=== PATIENT | female | born 1955 | race Caucasian/White ===

== ENCOUNTER 2023-12-09 12:31 | Emergency (ER) | payer MEDICARE, OTHER ==
[~2023-12-09] VITALS: Ht 170.2 cm; Wt 84.8 kg
[2023-12-09 13:10] VITALS: BP 124/74; PULSE 98; RESP 16; O2SAT 95
== END 2023-12-09 14:19 | disposition home or self-care (01) ==
LOC: ER 12:31
DX: R51.9 Headache, unspecified (principal); R42 Dizziness and giddiness; W18.09XA Striking against other object with subsequent fall, initial encounter; Y93.89 Activity, other specified; Y92.89 Other specified places as the place of occurrence of the external cause; Y99.8 Other external cause status
CPT/HCPCS: 70450

== ENCOUNTER 2024-08-23 14:20 | Inpatient (IN) | payer MEDICARE, OTHER ==
[~2024-08-23] VITALS: Ht 170.2 cm; Wt 82.9 kg
--- NOTE | 2024-08-23 15:41 | ED.PDOC ---
History of Present Illness HPI Comments 68F BIBA w/ no prior MHX associated to the c/c of a syncope. Pt reports that [place] when she went to the bathroom and had an episode of /D for which she felt dizzy, from there the pt was walking in the aisles when she lost her balance and fell. Pt notes on only having oatmeal today. Denies chills, LOC, Hit Head, fever, N/V/D, SOB, CP. Denies any other associated symptom's, modifiers, or recent injuries or sick contact at this time. 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 History Family History Family History: Reviewed,noncontributory to illness, Unknown Social History Smoker: Non-Smoker Alcohol: Denies ETOH Use Drugs: Denies Drug Use Lives In: Home Constitutional: denies: chills, diaphoresis, fatigue, fever, malaise, sweats, weakness, others EENTM: denies: blurred vision, double vision, ear bleeding, ear discharge, ear drainage, ear pain, ear ringing, eye pain, eye redness, hearing loss, mouth pain, mouth swelling, nasal discharge, nose bleeding, nose congestion, nose pain, photophobia, tearing, throat pain, throat swelling, voice changes, others Respiratory: denies: cough, hemoptysis, orthopnea, SOB at rest, shortness of breath, SOB with excertion, stridor, wheezing, others Cardiovascular: denies: chest pain, dizzy spells, diaphoresis, Dyspnea on exertion, edema, irregular heart beat, left arm pain, lightheadedness, palpitations, PND, syncope, others Gastrointestinal: reports: diarrhea; denies: abdomen distended, abdominal pain, blood streaked bowels, constipated, dysphagia, difficulty swallowing, hematemesis, melena, nausea, poor appetite, poor fluid intake, rectal bleeding, rectal pain, vomiting, others Genitourinary: denies: abnormal vagina bleeding, burning, dyspareunia, dysuria, flank pain, frequency, hematuria, incontinence, pain, , vagina discharge, urgency, others Neurological: denies: dizziness, fainting, headache, left sided numbness, left sided weakness, numbness, paresthesia, pre-existing deficit, right sided numbness, right sided weakness, seizure, speech problems, tingling, tremors, weakness, others Musculoskeletal: denies: back pain, gout, joint pain, joint swelling, muscle pain, muscle stiffness, neck pain, others Integumetry: denies: bruises, change in color, change in hair/nails, dryness, laceration, lesions, lumps, rash, wounds, others Allergic/Immunocompromised: denies: Difficulty Healing, Frequent Infections, Hives, Itching, others Hematologic/Lymphatic: denies: anemia, blood clots, easy bleeding, easy bruising, swollen glands, others Endocrine: denies: excessive hunger, excessive sweating, excessive thirst, excessive urination, flushing, intolerance to cold, intolerance to heat, unexplained weight gain, unexplained weight loss, others Psychiatric: denies: anxiety, bipolar disorder, depression, hopeless, panic disorder, schizophrenia, sleepless, suicidal, others All Other Systems: Reviewed and Negative Physical Exam General Appearance: Moderate Distress HEENT: Pale Conjuntivae (L), Pale Conjuntivae (R), Pharynx Normal, TMs Normal Neck: Full Range of Motion, Non-Tender, Normal, Normal Inspection Respiratory: Chest Non-Tender, Lungs Clear, No Accessory Muscle Use, No Respiratory Distress, Normal Breath Sounds Cardiovascular: No Edema, No JVD, No Murmur, No Gallop, Tachycardia Breast Exam: Deferred Gastrointestinal: No Organomegaly, Non Tender, No Pulsatile Mass, Normal Bowel Sounds, Soft Genitalia: Deferred Pelvic: Deferred Rectal: Deferred Extremities: No calf tenderness, Normal capillary refill, No pedal edema Musculoskeletal : Apperance: Normal Neurologic: Alert, shade cloth finisher II-XII nml as Tested, Motor Weakness, Normal Affect, Normal Mood, No Sensory Deficits Cerebellar Function: Normal Reflexes: Normal Skin: Dry, Pallor, Warm Lymphatic: No Adenopathy Was a procedure done? Was a procedure done?: No EKG EKG : Pulse Rate (adult): 81 [place]: Normal Cardiac Rhythm: NSR Block: None Hypertrophy: None ST: Normal Differential Dx Considerations may include: Tachyarrhythmia, SVT, sepsis, atrial fibrillation with rapid response, dehydration, electrolyte imbalance X-Ray, Labs, Meds, VS Vital Signs Date Time Temp Pulse Resp B/P (MAP) Pulse Ox O2 Delivery O2 Flow Rate FiO2 08/23/24 20:04 94 15 95 Room Air* 0 21 08/23/24 20:03 97.5 94 15 125/75 (92) 95 97.5 08/23/24 18:30 128 17 105/66 (79) 95 08/23/24 18:10 105 13 116/68 (84) 94 08/23/24 17:25 97.8 142 28 101/69 (80) 97 97.8 08/23/24 17:25 142 28 97 Room Air* 0 21 08/23/24 16:44 148 08/23/24 16:41 98.1 155 20 141/73 (95) 99 98.1 08/23/24 15:41 81 08/23/24 14:20 97.6 97 18 122/78 (93) 98 97.6 Lab Test 08/23/24 19:55 08/23/24 16:31 Range/Units Urine Color Colorless Yellow Urine Clarity Clear Clear Urine pH 6.5 5.0-9.0 Urine Specific [place] 1.005 1.001-1.035 Urine Protein Negative Negative Urine Ketones 1+ H Negative Urine Blood Negative Negative /uL Urine Nitrite Negative Negative Urine Bilirubin Negative Negative Urine Urobilinogen Normal Negative mg/dL Urine Leukocyte Esterase Negative Negative /uL Urine RBC <1 0 - 4 /hpf Urine Microscopic WBC 2 0-5 /HPF Urine Squamous Epithelial Cells None seen <5 /hpf Urine Bacteria Few H None Seen /hpf Urine Glucose Normal Normal mg/dL White Blood Count 13.9 H 4.4-10.8 10^3/uL Red Blood Count 5.40 H 4.0-5.20 10^6/uL Hemoglobin 15.6 12.2-16.2 g/dL Hematocrit 46.6 H 36.0-46.0 % Mean Corpuscular Volume 86.3 80.0-100.0 fL Mean Corpuscular Hemoglobin 28.8 28.0-32.0 pg Mean Corpuscular Hemoglobin Concent 33.4 32.0-36.0 g/dL Red Cell Distribution Width 14.2 11.8-14.3 % Platelet Count 241 140-450 10^3/uL Mean Platelet Volume 8.1 6.9-10.8 fL Neutrophils (%) (Auto) 86.2 H 37.0-80.0 % Lymphocytes (%) (Auto) 8.4 L 10.0-50.0 % Monocytes (%) (Auto) 5.2 0.0-12.0 % Eosinophils (%) (Auto) 0.1 0.0-7.0 % Basophils (%) (Auto) 0.1 0.0-2.0 % Neutrophils # (Auto) 12.0 H 1.6-8.6 10 ^3/uL Lymphocytes # (Auto) 1.2 0.4-5.4 10 ^3/uL Monocytes # (Auto) 0.7 0-1.3 10 ^3/uL Eosinophils # (Auto) 0 0-0.8 10 ^3/uL Basophils # (Auto) 0 0-0.2 10 ^3/uL Nucleated Red Blood Cells 0.1 % Sodium Level 142 136-145 mmol/L Potassium Level 3.9 3.5-5.1 mmol/L Chloride Level 109 H 98-107 mmol/L Carbon Dioxide Level 24 20-31 mmol/L Anion Gap 9 5-15 Blood Urea Nitrogen 19 9-23 mg/dL Creatinine 1.04 H 0.550-1.02 mg/dL Glomerular Filtration Rate Calc 58 >90 mL/min BUN/Creatinine Ratio 18.3 10.0-20.0 Serum Glucose 116 H 74-106 mg/dL Calcium Level 11.4 H 8.7-10.4 mg/dL Troponin I High Sensitivity 3 L </=34 ng/L Current Medications Medications (Trade) Dose Ordered Sig/Edis Route Start Time Stop Time Status Last Admin Sodium Chloride 500 ml @ 500 mls/hr Q1H ONCE IV 08/23/24 17:00 08/23/24 17:59 DC 08/23/24 17:30 Amiodarone HCl 100 ml @ 600 mls/hr ONCE ONCE IV 08/23/24 17:45 08/23/24 17:54 DC 08/23/24 17:56 IMPRESSION: 1. No acute intracranial abnormality. 2. Moderately severe right maxillary sinusitis. Radiation optimization: All CT scans at this facility use at least one of these dose optimization techniques: automated exposure control mA and/or kV adjustment per patient size (includes targeted exams where dose is matched to clinical indication) or iterative reconstruction. The patient was given normal saline as a 500 cc bolus. The patient was heart rate has been increasing and decreasing so we did start the patient had an amiodarone drip. The patient's troponin level came back as negative The CBC shows an elevated white blood cell count of 13.9 The urine test is negative for any UTI Blood cultures x2 were being drawn The lactic acid level is being done The patient was being started on some IV antibiotics as well. The patient was being admitted at this time. Images Reviewed?: Images reviewed and evaluated by me Time of 1ST Reevaluation: 15:30 Reevaluation 1ST: Unchanged Patient Education/Counseling: Diagnosis, Treatment, Prognosis Family Education/Counseling: No Family Present Departure 1 Departure Time of Disposition: 20:43 Impression: Primary Impression: Autonomic dysfunction Additional Impressions: Generalized weakness Dehydration Tachycardia Hypotension Qualified Codes: I95.9 - Hypotension, unspecified Disposition: ADMITTED INPATIENT Admit to: MARK Condition: Fair Critical Care Note Critical Care Time?: Yes (45 min-critical care time only) Stability Stability form required: Yes Unstable for transfer: ICU, CCU, PCU, MARK (Intensive VS monitoring), Low BP (low high or fluctuating BP), ED Physician Assesment (Clinical assesment) I personally scribed for KAVITA KOCH MD ([email or web address]) on 08/23/24 at 15:41. Electronically submitted by Monster Valencia ([email or web address]). I personally scribed for KAVITA KOCH MD ([email or web address]) on 08/23/24 at 18:47. Electronically submitted by Monster Valencia ([email or web address]). KAVITA KOCH MD August 23, 2024 15:41
--- NOTE | 2024-08-23 16:35 | DVH ---
EXAM: CT HEAD WITHOUT CONTRAST INDICATION: syncope TECHNIQUE: CT of the head without intravenous contrast. Radiation Dose : 1. Head: CT Dose: CTDI volume is 53.75 mGy. Dose-length product is 861.71 mGy*cm The dose indicators for CT are the volume Computed Tomography (CT) Dose Index (CTDIvol) and the Dose Length Product (DLP), and are measured in units of mGy and mGy-cm, respectively. These indicators are not patient dose, but values generated from the CT scanner acquisition factors. The report includes radiation exposure data for exposures received during this examination. COMPARISON: CT HEAD WITHOUT CONTRAST on DOS: 12/09/23 FINDINGS: There is no evidence of acute intracranial hemorrhage, extra-axial collection, mass effect, midline s hift, herniation or hydrocephalus. The ventricles, sulci and cisterns are age appropriate. The barajas-white differentiation is intact. Patchy periventricular and subcortical white matter hypoattenuation is nonspecific but may be related to small vessel ischemic disease. Moderately severe right maxillary sinusitis. The surrounding soft tissues and osseous structures are unremarkable. IMPRESSION: 1. No acute intracranial abnormality. 2. Moderately severe right maxillary sinusitis. Radiation optimization: All CT scans at this facility use at least one of these dose optimization luis hniques: automated exposure control mA and/or kV adjustment per patient size (includes targeted exam s where dose is matched to clinical indication) or iterative reconstruction.
[2024-08-23 16:55] LABS: Basophils # (auto) 0 10 ^3/uL (0-0.2); Basophils % (auto) 0.1 % (0.0-2.0); Eosinophils # (auto) 0 10 ^3/uL (0-0.8); Eosinophils % (auto) 0.1 % (0.0-7.0); Hematocrit 46.6 % (36.0-46.0); Hemoglobin 15.6 g/dL (12.2-16.2); Lymphocytes # (auto) 1.2 10 ^3/uL (0.4-5.4); Lymphocytes % (auto) 8.4 % (10.0-50.0); Mean Corpuscular Hemoglobin 28.8 pg (28.0-32.0); Mean Corpuscular Hgb Conc. 33.4 g/dL (32.0-36.0); Mean Corpuscular Volume 86.3 fL (80.0-100.0); Monocytes # (auto) 0.7 10 ^3/uL (0-1.3); Monocytes % (auto) 5.2 % (0.0-12.0); Neutrophils % (auto) 86.2 % (37.0-80.0); Nucleated Red Blood Cells % 0.1 %; Platelet Count (auto) 241 10^3/uL (140-450); Red Cell Distribution Width 14.2 % (11.8-14.3); White Blood Cell 13.9 10^3/uL (4.4-10.8)
[2024-08-23] MEDS ORDERED: LABETALOL HCL 20 MG/4 ML VL IV PRN (17:00)
[2024-08-23 17:02] LABS: Potassium 3.9 mmol/L (3.5-5.1); Sodium 142 mmol/L (136-145)
[2024-08-23 17:03] LABS: Anion Gap 9 (5-15); Carbon Dioxide 24 mmol/L (20-31)
[2024-08-23 17:08] LABS: BUN/Creatinine Ratio 18.3 (10.0-20.0); Blood Urea Nitrogen 19 mg/dL (9-23); Calcium 11.4 mg/dL (8.7-10.4); Chloride 109 mmol/L (98-107); Glucose 116 mg/dL (74-106)
[2024-08-23 17:25] VITALS: PULSE 142; RESP 28; O2SAT 97
[2024-08-23] MEDS: SODIUM CHLORIDE 0.9% 500 ML IV ONE (17:30)
[2024-08-23] MEDS ORDERED: ADENOSINE 6 MG/2 ML INJ IV ONE (17:30)
[2024-08-23] MEDS: AMIODARONE BOLUS KIT 100 ML IV ONE (17:56)
[2024-08-23] MEDS: AMIODARONE 360mg/200mL PREMIX 200 ML IV ONE (18:14)
[2024-08-23] MEDS ORDERED: ACETAMINOPHEN 325 MG TAB PO PRN (19:30)
[2024-08-23] MEDS ORDERED: DOCUSATE SOD 100 MG CAP PO PRN (19:30)
[2024-08-23] MEDS ORDERED: ONDANSETRON HCL 4 MG/2 ML VIAL IV PRN (19:30)
[2024-08-23] MEDS ORDERED: HYDROcodone-ACET 5/325MG TAB PO PRN (19:30)
[2024-08-23 20:04] VITALS: PULSE 94; RESP 15; O2SAT 95
[2024-08-23 20:12] LABS: Urine Bacteria FEW /hpf (None Seen); Urine Blood Negative /uL (Negative); Urine Clarity Clear (Clear); Urine Color Colorless (Yellow); Urine Protein, UAD Negative (Negative); Urine Specific Gravity 1.005 (1.001-1.035); Urine Squamous Epithelial Cell None Seen /hpf (<5); Urine Urobilinogen Normal (Negative); Urine WBC 2 /HPF (0-5); Urine pH 6.5 (5.0-9.0)
--- NOTE | 2024-08-23 20:33 | ECG ---
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
[2024-08-23] MEDS: SODIUM CHLORIDE 0.9% 1,000 ML IV ONE (20:45)
[2024-08-23] MEDS: cefTRIAXone 1GM/50ML D5W 50 ML IV ONE (20:47)
[2024-08-23] MEDS: ASPirin 81 mg TAB PO ONE (20:47)
[2024-08-23] MEDS: SODIUM CHLOR 0.9% PF (SALINE LOCK) 10ML VIAL/SYR IV SCH (21:58)
[2024-08-23] MEDS: METOPROLOL TARTRATE 25 MG TAB PO SCH (22:00)
[2024-08-23] MEDS: AMIODARONE HCL 200 MG TAB PO SCH (22:06)
--- NOTE | 2024-08-23 22:13 | DVHHP2 ---
History of Present Illness Reason for Visit: Syncope and collapse History of Present Illness The patient is a 68-year-old female who denies past medical history presented to [facility] ED with complaint of syncopal episode. Patient reports she was [place] when she went to the bathroom and felt dizzy with spinning sensation, loss of balance, and had syncopal episode. Patient unable to recall event as she reports she suddenly found herself in the hospital. Patient was seen and evaluated in the ED, laboratory data shows elevated WBC 13.9, platelets 241, sodium 142, potassium 3.9, BUN 19, creatinine 1.04, glucose 116, GFR 58, calcium 11.4, troponin 3, blood pressure 141/73, heart rate 155 trending down to 82, temperature 98.1 F, O2 saturation 99% on room air. Patient was given IV amiodarone 150 mg x1, please see medication orders section in the computer. On my assessment, patient denies chest pain, no headache, no dizziness, no diaphoresis, no shortness of breath, no nausea, no vomiting, no fever, no chills. Patient was admitted for further evaluation and medical management. Past Medical History Denies past medical history Past Surgical History Denies all surgeries Family History Reviewed, noncontributory to the management of this case. Past Social History The patient lives at home, denies smoking, alcohol or illicit drugs abuse. Review of Systems Constitutional: Yes: Weakness; No: Fever, Chills, Sweats, Malaise, Other Eyes: No: Pain, Vision change, Conjunctivae inflammation, Eyelid inflammation, Other, Redness ENT: No: Ear pain, Ear discharge, Nose pain, Nose discharge, Nose congestion, Mouth pain, Mouth swelling, Throat pain, Throat swelling, Other Respiratory: No: Cough, Dry, Shortness of breath, SOB with excertion, Wheezing, Hemoptysis, Pleuritic Pain, Sputum, Wheezing, Other Cardiovascular: Other (Syncope); No: Chest Pain, Palpitations, Orthopnea, Paroxysmal Noc. Dyspnea, Edema, Lt Headedness Gastrointestinal: No: Nausea, Vomiting, Abdominal Pain, Diarrhea, Constipation, Melena, Hematochezia, Other Genitourinary: No Dysuria, No Frequency, No Incontinence, No Hematuria, No Retention, No Other Musculoskeletal: No: other, neck pain, shoulder pain, arm pain, back pain, hand pain, leg pain, foot pain Skin: No: Rash, Lesions, Jaundice, Bruising, Other Neurological: No: Weakness, Numbness, Incoordination, Change in speech, Confusion, Seizures, Other Allergies: Coded Allergies: NO KNOWN ALLERGIES (Unverified , 08/23/24) Medications Current Medications Medications Dose Ordered Sig/Edis Route Start Time Stop Time Status Last Admin Dose Admin Labetalol HCl 10 mg Q2HPRN PRN IV 08/23/24 17:00 Amiodarone HCl 200 mg Q12HR PO 08/23/24 22:00 08/23/24 22:06 200 MG Ceftriaxone Sodium 50 ml @ 100 mls/hr DAILY@09 IV 08/24/24 09:00 Metoprolol Tartrate 25 mg BID PO 08/23/24 22:00 Aspirin 81 mg DAILY PO 08/24/24 10:00 Sodium Chloride 10 ml Q8HR IV 08/23/24 22:00 08/23/24 21:58 10 ML Acetaminophen/ Hydrocodone Bitart 1 tab Q4HP PRN PO 08/23/24 19:30 Ondansetron HCl 4 mg Q4HP PRN IV 08/23/24 19:30 Docusate Sodium 100 mg BIDPRN PRN PO 08/23/24 19:30 Acetaminophen 650 mg Q6HP PRN PO 08/23/24 19:30 Exam Vital Signs Vital Signs Date Time Temp Pulse Resp B/P (MAP) Pulse Ox O2 Delivery O2 Flow Rate FiO2 08/23/24 22:00 79 107/55 08/23/24 20:04 15 95 Room Air* 0 21 08/23/24 20:03 97.5 97.5 General Appearance: Alert, Oriented X3, Cooperative, No acute distress HEENT: Atraumatic, PERRLA, EOMI, Mucous membr. moist/pink Respiratory: Clear to auscultation, Normal air movement Cardiovascular: Regular rate, Normal S1, Normal S2, No murmurs Abdominal: Normal bowel sounds, Soft, No tenderness, No hepatospenomegaly, No masses Extremities: No clubbing, No cyanosis, No edema, Normal pulses, No tenderness/swelling Skin: No rashes, No breakdown, No significant lesion Neuro: Normal speech, Normal tone, Sensation intact, Cranial nerves 3-12 NL, Reflexes 2+, Other (Generalized weakness) Psych/Mental Status: Mental status NL, Mood NL Labs/Xrays Labs Test 08/23/24 20:52 08/23/24 19:55 08/23/24 16:31 Range/Units Lactic Acid Level 1.5 0.4-2.0 mmol/L Urine Color Colorless Yellow Urine Clarity Clear Clear Urine pH 6.5 5.0-9.0 Urine Specific [place] 1.005 1.001-1.035 Urine Protein Negative Negative Urine Ketones 1+ H Negative Urine Blood Negative Negative /uL Urine Nitrite Negative Negative Urine Bilirubin Negative Negative Urine Urobilinogen Normal Negative mg/dL Urine Leukocyte Esterase Negative Negative /uL Urine RBC <1 0 - 4 /hpf Urine Microscopic WBC 2 0-5 /HPF Urine Squamous Epithelial Cells None seen <5 /hpf Urine Bacteria Few H None Seen /hpf Urine Glucose Normal Normal mg/dL White Blood Count 13.9 H 4.4-10.8 10^3/uL Red Blood Count 5.40 H 4.0-5.20 10^6/uL Hemoglobin 15.6 12.2-16.2 g/dL Hematocrit 46.6 H 36.0-46.0 % Mean Corpuscular Volume 86.3 80.0-100.0 fL Mean Corpuscular Hemoglobin 28.8 28.0-32.0 pg Mean Corpuscular Hemoglobin Concent 33.4 32.0-36.0 g/dL Red Cell Distribution Width 14.2 11.8-14.3 % Platelet Count 241 140-450 10^3/uL Mean Platelet Volume 8.1 6.9-10.8 fL Neutrophils (%) (Auto) 86.2 H 37.0-80.0 % Lymphocytes (%) (Auto) 8.4 L 10.0-50.0 % Monocytes (%) (Auto) 5.2 0.0-12.0 % Eosinophils (%) (Auto) 0.1 0.0-7.0 % Basophils (%) (Auto) 0.1 0.0-2.0 % Neutrophils # (Auto) 12.0 H 1.6-8.6 10 ^3/uL Lymphocytes # (Auto) 1.2 0.4-5.4 10 ^3/uL Monocytes # (Auto) 0.7 0-1.3 10 ^3/uL Eosinophils # (Auto) 0 0-0.8 10 ^3/uL Basophils # (Auto) 0 0-0.2 10 ^3/uL Nucleated Red Blood Cells 0.1 % Sodium Level 142 136-145 mmol/L Potassium Level 3.9 3.5-5.1 mmol/L Chloride Level 109 H 98-107 mmol/L Carbon Dioxide Level 24 20-31 mmol/L Anion Gap 9 5-15 Blood Urea Nitrogen 19 9-23 mg/dL Creatinine 1.04 H 0.550-1.02 mg/dL Glomerular Filtration Rate Calc 58 >90 mL/min BUN/Creatinine Ratio 18.3 10.0-20.0 Serum Glucose 116 H 74-106 mg/dL Calcium Level 11.4 H 8.7-10.4 mg/dL Troponin I High Sensitivity 3 L </=34 ng/L PATIENT: MATT OG ANNACCT: [id number] UNIT: [id number] : 1955 LOC: ER ROOM / BED: / AGE / SEX: 68 / F ADM STATUS: REG ER SERVICE [id number] ORDERING PHYSICIAN: KAVITA KOCH MD PROCEDURE(s): HWOCT - HEAD WITHOUT CONTRAST REASON: syncope ORDER NUMBER(s): [id number], ACCESSION NUMBER(s): [id number] EXAM: CT HEAD WITHOUT CONTRAST INDICATION: syncope TECHNIQUE: CT of the head without intravenous contrast. Radiation Dose: 1. Head: CT Dose: CTDI volume is 53.75 mGy. Dose-length product is 861.71 mGy*cm The dose indicators for CT are the volume Computed Tomography (CT) Dose Index (CTDIvol) and the Dose Length Product (DLP), and are measured in units of mGy and mGy-cm, respectively. These indicators are not patient dose, but values generated from the CT scanner acquisition factors. The report includes radiation exposure data for exposures received during this examination. COMPARISON: CT HEAD WITHOUT CONTRAST on DOS: 12/09/23 FINDINGS: There is no evidence of acute intracranial hemorrhage, extra-axial collection, mass effect, midline shift, herniation or hydrocephalus. The ventricles, sulci and cisterns are age appropriate. The barajas-white differentiation is intact. Patchy periventricular and subcortical white matter hypoattenuation is nonspec ific but may be related to small vessel ischemic disease. Moderately severe right maxillary sinusitis. The surrounding soft tissues and osseous structures are unremarkable. IMPRESSION: 1. No acute intracranial abnormality. 2. Moderately severe right maxillary sinusitis. Assessment/Plan Assessment/Plan Autonomic dysfunction Dehydration Tachycardia Generalized weakness Hypotension Hypotension, unspecified Plan 1. Admit to telemetry unit 2. Breathing treatment 3. Pain control management 4. Management of fluids and electrolytes 5. Consultation for Cardiology 6. Diagnostic tests chest x-ray 7. DVT prophylaxis-on aspirin 8. Repeat labs CBC, CMP in a.m. 9. Continue with current medical management 10. Treatment plan discussed with patient and RN. Patient verbalized understanding. Plan discussed with: Patient, Other (RN) My Orders Orders - MANSOOR CHAVEZ DNP Procedure Category Date Status Time * Cardiology Consult CONS 08/23/24 Transmitted 19:26 Amiodarone Tablet PHA 08/23/24 In Process (Cordarone Tablet) 22:00 Ceftriaxone 1gm/50ml PHA 08/24/24 In Process D5w (Rocephin) 09:00 Metoprolol Tartrate PHA 08/23/24 In Process Tablet (Lopressor Ta 22:00 Aspirin Tablet PHA 08/24/24 In Process 10:00 Allergies HAILE 08/23/24 In Process 19:26 Code Status CODE 08/23/24 Transmitted 19:26 Sodium Chloride Lock PHA 08/23/24 In Process (Saline Lock Ns) 22:00 Oxygen Per Hour RT 08/23/24 Transmitted 19:26 Hydrocodone-Acet PHA 08/23/24 In Process 5/325mg Tab (Moro 19:30 Ondansetron Hcl PHA 08/23/24 In Process (Zofran) 19:30 Docusate Sodium PHA 08/23/24 In Process Capsule (Colace 19:30 Fall Risk Precautions HAILE 08/23/[address] 19:26 Complete Blood Count LAB 08/24/24 Verified 04:00 Comprehensive LAB 08/24/24 Verified Metabolic Panel 04:00 Cardiac DIET 08/24/24 Transmitted Diet-2gna,Lofat,Lochol Breakfast Condition: Serious HAILE 08/23/24 In Process 19:26 Acetaminophen Tablet PHA 08/23/24 In Process (Tylenol Tablet) 19:30 Maintain Bed Rest HAILE 08/23/24 In Process 19:26 Sequential HAILE 08/23/24 In Process Compression Device Problem List: (1) Autonomic dysfunction (2) Hypotension (3) Tachycardia (4) Generalized weakness (5) Dehydration (6) Hypotension, unspecified Date of Service: August 23, 2024 Billing Provider: MANSOOR CHAVEZ DNP Common Visit Codes: [id number] INP/OBS CARE (HIGH) MANSOOR CHAVEZ DNP August 23, 2024 22:13
[2024-08-23] MEDS ORDERED: NITROGLYCERIN 0.4 MG SL TAB SL PRN (22:15)
[2024-08-23] MEDS ORDERED: MORPHINE SULFATE INJ 2 MG/ml SYRG IV PRN (22:15)
[2024-08-24] VITALS (10 sets, daily range): BP systolic 119–161; BP diastolic 70–112; PULSE 66–77; RESP 16–19; TEMP 97.3–98.9; O2SAT 96–98
[2024-08-24 08:12] LABS: Alanine Aminotransferase 13 U/L (7-40); Alkaline Phosphatase 78 U/L (46-116); Anion Gap 7 (5-15); BUN/Creatinine Ratio 13.4 (10.0-20.0); Blood Urea Nitrogen 11 mg/dL (9-23); Calcium 10.3 mg/dL (8.7-10.4); Carbon Dioxide 24 mmol/L (20-31); Glucose 93 mg/dL (74-106); Potassium 3.8 mmol/L (3.5-5.1); Total Protein 5.9 g/dL (5.7-8.2)
[2024-08-24 08:13] LABS: Albumin 3.6 g/dL (3.2-4.8); Bilirubin, Total 0.9 mg/dL (0.2-1.0)
[2024-08-24 08:16] LABS: Aspartate Aminotransferase 10 U/L (13-40); Chloride 114 mmol/L (98-107); Sodium 145 mmol/L (136-145)
[2024-08-24 08:18] LABS: Basophils # (auto) 0 10 ^3/uL (0-0.2); Basophils % (auto) 0.3 % (0.0-2.0); Eosinophils # (auto) 0 10 ^3/uL (0-0.8); Eosinophils % (auto) 0.6 % (0.0-7.0); Hematocrit 40.2 % (36.0-46.0); Hemoglobin 13.5 g/dL (12.2-16.2); Lymphocytes # (auto) 1.6 10 ^3/uL (0.4-5.4); Lymphocytes % (auto) 26.7 % (10.0-50.0); Mean Corpuscular Hemoglobin 28.9 pg (28.0-32.0); Mean Corpuscular Hgb Conc. 33.6 g/dL (32.0-36.0); Mean Corpuscular Volume 85.8 fL (80.0-100.0); Monocytes # (auto) 0.6 10 ^3/uL (0-1.3); Monocytes % (auto) 9.7 % (0.0-12.0); Neutrophils # (auto) 3.8 10 ^3/uL (1.6-8.6); Neutrophils % (auto) 62.7 % (37.0-80.0); Nucleated Red Blood Cells % 0.1 %; Platelet Count (auto) 181 10^3/uL (140-450); Red Blood Cells 4.68 10^6/uL (4.0-5.20); Red Cell Distribution Width 14.2 % (11.8-14.3); White Blood Cell 6.1 10^3/uL (4.4-10.8)
[2024-08-24] MEDS: ASPirin 81 mg TAB PO SCH (10:16)
[2024-08-24] MEDS: cefTRIAXone 1GM/50ML D5W 50 ML IV SCH (10:17)
--- NOTE | 2024-08-24 12:39 | DVHINCON2 ---
JU TINJAERO [facility] 08/24/24 1239: Date Seen: August 24, 2024 Referring Physician GISELLA Saenz Reason for Consultation Atrial fibrillation History of Present Illness This is a 68-year-old female patient who presents to the emergency room after sustaining a syncopal episode. The patient reports that she was running errands at [employer] yesterday when suddenly she began to feel hot, dizzy, and palpitations. She reports that the next thing she remembers is waking up on the ground with a bystander helping her. EMS was called and the patient was brought to the emergency room for further evaluation. Cardiology has been consulted at this time for "atrial fibrillation". Initial twelve lead electrocardiogram done in the emergency room shows patient in normal sinus rhythm with PAC. Approximately 2 hours later, a repeat twelve lead electrocardiogram was obtained in the emergency room and shows a narrow complex tachycardia, likely SVT. No evidence of atrial fibrillation found on twelve lead electrocardiograms or groundwater monitoring technician. For some reason, the patient was treated with an amiodarone bolus and protocol IV dose while in the emergency room. At the time of assessment, the patient is back in a normal sinus rhythm on groundwater monitoring technician. Initial troponin level was negative. The patient denies any cardiac symptoms at time of assessment. The patient denies any previous past medical history. Past Medical History Past medical history reviewed. No other significant than mentioned above. Past Surgical History Denies any previous surgeries Family History: Patient reports no known family medical history. Family History Family history reviewed. Social History Denies the use of tobacco, alcohol or illicit drugs. Allergies: Coded Allergies: NO KNOWN ALLERGIES (Unverified , 08/23/24) Home Meds Denies taking any prescribed medications Current Medications Current Medications Medications (Trade) Dose Ordered Sig/Edis Route PRN Reason Start Time Stop Time Status Last Admin Labetalol HCl (Labetalol HCl) 10 mg Q2HPRN PRN IV SBP>150 08/23/24 17:00 Amiodarone HCl (Cordarone Tablet) 200 mg Q12HR PO 08/23/24 22:00 08/24/24 11:46 DC 08/24/24 10:16 Ceftriaxone Sodium 50 ml @ 100 mls/hr DAILY@09 IV 08/24/24 09:00 08/24/24 10:17 Metoprolol Tartrate (Lopressor Tablet) 25 mg BID PO 08/23/24 22:00 08/24/24 10:16 Aspirin 81 mg DAILY PO 08/24/24 10:00 08/24/24 10:16 Sodium Chloride (Saline Lock Ns) 10 ml Q8HR IV 08/23/24 22:00 08/24/24 06:00 Acetaminophen/ Hydrocodone Bitart ([place] 5/325MG Tab) 1 tab Q4HP PRN PO MODERATE PAIN (4-6 PAIN SCALE) 08/23/24 19:30 Ondansetron HCl (Zofran) 4 mg Q4HP PRN IV NAUSEA / VOMITING 08/23/24 19:30 Docusate Sodium (Colace Capsule) 100 mg BIDPRN PRN PO FOR CONSTIPATION 08/23/24 19:30 Acetaminophen (Tylenol Tablet) 650 mg Q6HP PRN PO PAIN SCALE 1-3 OR TEMP>100.4 08/23/24 19:30 Nitroglycerin (Ntrostat Sublingual) 0.4 mg Q5MINP PRN SL FOR CHEST PAIN 08/23/24 22:15 Morphine Sulfate 2 mg Q30M PRN IV FOR CHEST PAIN 08/23/24 22:15 Review of Systems Constitutional: No symptom reported Ears, Nose, & Throat: No symptom reported Eyes: No symptom reported Neurological: Syncope Pulmonary/Respiratory: No symptoms reported Cardiovascular: Palpitations Gastrointestinal: No symptom reported Genitourinary: No symptom reported Musculoskeletal: No symptom reported Skin: No symptom reported Psychiatric: No symptom reported Endocrine: No symptom reported Hematologic/Lymphatic: No symptom reported Vital Signs Vital Signs Date Time Temp Pulse Resp B/P (MAP) Pulse Ox O2 Delivery O2 Flow Rate FiO2 08/24/24 10:16 68 132/70 08/24/24 08:47 98.0 16 98 98.0 08/24/24 08:00 Room Air* 0 21 Physical Exam General Appearance: Cooperative. Well-developed. Well-nourished. No acute distress. Pulmonary/Respiratory: Clear, bilateral breaths sounds. Cardiovascular/Chest: Regular rate and rhythm. Peripheral Pulses: 2+ Radial (R). 2+ Radial (L). 2+ Pedal (R). 2+ Pedal (L) Abdominal Exam: Normal bowel sounds. Ankle Exam: Negative ankle edema Lower extremities: Negative lower extremity edema Neuro/Mental Status: A/OX4, coherent. Thoughts/Psych: Normal thought pattern. Appropriate mood and affect. Good judgment and insight. Appearance: No acute distress. Skin Exam: Normal inspection. Normal color. Warm and dry. Labs/Diagnostic Data Labs Test 08/24/24 06:10 08/23/24 20:52 08/23/24 19:55 08/23/24 16:31 Range/Units White Blood Count 6.1 # 4.4-10.8 10^3/uL Red Blood Count 4.68 4.0-5.20 10^6/uL Hemoglobin 13.5 12.2-16.2 g/dL Hematocrit 40.2 # 36.0-46.0 % Mean Corpuscular Volume 85.8 80.0-100.0 fL Mean Corpuscular Hemoglobin 28.9 28.0-32.0 pg Mean Corpuscular Hemoglobin Concent 33.6 32.0-36.0 g/dL Red Cell Distribution Width 14.2 11.8-14.3 % Platelet Count 181 140-450 10^3/uL Mean Platelet Volume 8.3 6.9-10.8 fL Neutrophils (%) (Auto) 62.7 37.0-80.0 % Lymphocytes (%) (Auto) 26.7 10.0-50.0 % Monocytes (%) (Auto) 9.7 0.0-12.0 % Eosinophils (%) (Auto) 0.6 0.0-7.0 % Basophils (%) (Auto) 0.3 0.0-2.0 % Neutrophils # (Auto) 3.8 1.6-8.6 10 ^3/uL Lymphocytes # (Auto) 1.6 0.4-5.4 10 ^3/uL Monocytes # (Auto) 0.6 0-1.3 10 ^3/uL Eosinophils # (Auto) 0 0-0.8 10 ^3/uL Basophils # (Auto) 0 0-0.2 10 ^3/uL Nucleated Red Blood Cells 0.1 % Sodium Level 145 136-145 mmol/L Potassium Level 3.8 3.5-5.1 mmol/L Chloride Level 114 H 98-107 mmol/L Carbon Dioxide Level 24 20-31 mmol/L Anion Gap 7 5-15 Blood Urea Nitrogen 11 9-23 mg/dL Creatinine 0.82 0.550-1.02 mg/dL Glomerular Filtration Rate Calc 77 >90 mL/min BUN/Creatinine Ratio 13.4 10.0-20.0 Serum Glucose 93 74-106 mg/dL Calcium Level 10.3 8.7-10.4 mg/dL Total Bilirubin 0.9 0.2-1.0 mg/dL Aspartate Amino Transferase (AST) 10 L 13-40 U/L Alanine Aminotransferase (ALT) 13 7-40 U/L Alkaline Phosphatase 78 46-116 U/L Total Protein 5.9 5.7-8.2 g/dL Albumin 3.6 3.2-4.8 g/dL Lactic Acid Level 1.5 0.4-2.0 mmol/L Urine Color Colorless Yellow Urine Clarity Clear Clear Urine pH 6.5 5.0-9.0 Urine Specific [place] 1.005 1.001-1.035 Urine Protein Negative Negative Urine Ketones 1+ H Negative Urine Blood Negative Negative /uL Urine Nitrite Negative Negative Urine Bilirubin Negative Negative Urine Urobilinogen Normal Negative mg/dL Urine Leukocyte Esterase Negative Negative /uL Urine RBC <1 0 - 4 /hpf Urine Microscopic WBC 2 0-5 /HPF Urine Squamous Epithelial Cells None seen <5 /hpf Urine Bacteria Few H None Seen /hpf Urine Glucose Normal Normal mg/dL Troponin I High Sensitivity 3 L </=34 ng/L Assessment Narrow complex tachycardia, likely SVT, new onset, now normal sinus rhythm Syncope, rule out cardiac etiology Rule out structural heart disease Moderately severe right maxillary sinusitis Plan/Recommendation We will continue with the following plan/recommendations (Dr. Moore): * Transthoracic echocardiogram to evaluate cardiac function * Bilateral carotid ultrasound: Negative for stenosis * Orthostatic vital signs * Continue with beta-js * Stop Amiodarone therapy * Close Cardiac surveillance * Consider outpatient event monitor Case discussed with . All twelve lead electrocardiograms reviewed with . No evidence of atrial fibrillation. Rhythms likely in keeping with supraventricular tachycardia although atrial flutter can not be completely ruled out. We will recommend to keep the patient on telemetry monitoring with close cardiac surveillance. The patient may benefit from an outpatient event monitor. Thank you for allowing us to care for this patient. Please call with any questions or concerns. Critical care time spent: 44 minutes This medical document was created using an electronic medical record system with voice recognition software and computerized dictation system. Although this document has been carefully reviewed, there might still be some phonetic and typographical errors. Occasional wrong-word or ``sound-alike substitutions may have occurred due to the inherent limitations of voice recognition software. These areas are purely typographical due to imperfections of the software programs and do not reflect any compromise in the patient's medical care. Please read the chart carefully and recognize, using context, where these substitutions have occurred. Plan discussed with: Patient NYHA Physical activity limitations: NA Date of Service: August 24, 2024 Billing Provider: JU TINAJERO Cardiology Common Codes: [id number] INP/OBS CARE (High) Cardiology Consultation Codes: [id number] CONSULT <45MIN SHAYY MOORE MD 08/24/24 1447: Family History: Patient reports no known family medical history. Allergies: Coded Allergies: NO KNOWN ALLERGIES (Unverified , 08/23/24) Plan/Recommendation likely svt such as avnrt vs less likely AFL adenosine would ve helped more than amio dc amio dc doac outpt holter fu echo Plan discussed with: Patient JU TINAJERO August 24, 2024 12:39 SHAYY MOORE MD August 24, 2024 14:47
--- NOTE | 2024-08-24 12:52 | DVHPN2 ---
Reviewed: Care Plan, H&P, Labs, Medications, Previous Orders, Radiology Changes from previous H/P or p: No Changes Eyes: No Pain, No Vision change, No Conjunctivae inflammation, No Eyelid inflammation, No Other, No Redness ENT: No Ear pain, No Ear discharge, No Nose pain, No Nose discharge, No Nose congestion, No Mouth pain, No Mouth swelling, No Throat pain, No Throat swelling, No Other Cardiovascular: No Chest Pain, No Palpitations, No Orthopnea, No Paroxysmal Noc. Dyspnea, No Edema, No Lt Headedness; Other (Syncope) Respiratory: No Cough, No Dry, No Shortness of breath, No SOB with excertion, No Wheezing, No Hemoptysis, No Pleuritic Pain, No Sputum, No Other Gastrointestinal: No Nausea, No Vomiting, No Abdominal Pain, No Diarrhea, No Constipation, No Melena, No Hematochezia, No Other Genitourinary: No Dysuria, No Frequency, No Incontinence, No Hematuria, No Retention, No Other Musculoskeletal: No other, No neck pain, No shoulder pain, No arm pain, No back pain, No hand pain, No leg pain, No foot pain Skin: No Rash, No Lesions, No Jaundice, No Bruising, No Other Objective Vitals Vital Signs Date Time Temp Pulse Resp B/P (MAP) Pulse Ox O2 Delivery O2 Flow Rate FiO2 08/24/24 12:36 98.3 66 16 153/93 (113) 97 98.3 08/24/24 08:00 Room Air* 0 21 Intake/Output Intake and Output 08/24/24 07:00 Intake Total 800 ml Output Total 1750 ml Balance -950 ml Intake Oral 200 ml IV Total 600 ml Output Urine Total 1750 ml # Voids 1 Medications Current Medications Medications Dose Ordered Sig/Edis Route Start Time Stop Time Status Last Admin Dose Admin Labetalol HCl 10 mg Q2HPRN PRN IV 08/23/24 17:00 Ceftriaxone Sodium 50 ml @ 100 mls/hr DAILY@09 IV 08/24/24 09:00 08/24/24 10:17 100 MLS/HR Metoprolol Tartrate 25 mg BID PO 08/23/24 22:00 08/24/24 10:16 25 MG Aspirin 81 mg DAILY PO 08/24/24 10:00 08/24/24 10:16 81 MG Sodium Chloride 10 ml Q8HR IV 08/23/24 22:00 08/24/24 06:00 10 ML Acetaminophen/ Hydrocodone Bitart 1 tab Q4HP PRN PO 08/23/24 19:30 Ondansetron HCl 4 mg Q4HP PRN IV 08/23/24 19:30 Docusate Sodium 100 mg BIDPRN PRN PO 08/23/24 19:30 Acetaminophen 650 mg Q6HP PRN PO 08/23/24 19:30 Nitroglycerin 0.4 mg Q5MINP PRN SL 08/23/24 22:15 Morphine Sulfate 2 mg Q30M PRN IV 08/23/24 22:15 Laboratory Results Laboratory Tests 08/24/24 06:10 Chemistry Test 08/23/24 16:31 08/24/24 06:10 Calcium Level 11.4 mg/dL (8.7-10.4) H 10.3 mg/dL (8.7-10.4) Albumin 3.6 g/dL (3.2-4.8) Total Protein 5.9 g/dL (5.7-8.2) LFT Test 08/24/24 06:10 Alanine Aminotransferase (ALT) 13 U/L (7-40) Alkaline Phosphatase 78 U/L (46-116) Aspartate Amino Transferase (AST) 10 U/L (13-40) L Total Bilirubin 0.9 mg/dL (0.2-1.0) Urinalysis Test 08/23/24 19:55 Urine Color Colorless (Yellow) Urine Clarity Clear (Clear) Urine pH 6.5 (5.0-9.0) Urine Specific [place] 1.005 (1.001-1.035) Urine Protein Negative (Negative) Urine Ketones 1+ (Negative) H Urine Blood Negative /uL (Negative) Urine Nitrite Negative (Negative) Urine Bilirubin Negative (Negative) Urine Urobilinogen Normal mg/dL (Negative) Urine Leukocyte Esterase Negative /uL (Negative) Urine RBC <1 /hpf (0 - 4) Urine Microscopic WBC 2 /HPF (0-5) Urine Squamous Epithelial Cells None seen /hpf (<5) Urine Bacteria Few /hpf (None Seen) H Urine Glucose Normal mg/dL (Normal) Labs and/or images reviewed: Labs reviewed by me, Image(s) reviewed by me Assessment/Plan Assessment/Plan Syncope unknown etiology: Echocardiogram carotid ultrasound, CT head negative chest x-ray negative cardiology consult for Dr. Ahn to rule out cardiac etiology for syncope Maxillary sinusitis: Rocephin Autonomic dysfunction Dehydration Tachycardia Generalized weakness Hypotension Hypotension, unspecified on metoprolol Time spent 50 minutes Advanced care planning time 20 minutes Patient is full code Plan discussed with: Patient My Orders Orders - ABBY HUMPHREYS MD Procedure Category Date Status Time Echo 2d Mode Cardiac US 08/24/24 Transmitted DOP 12:48 Carotid Duplx W Color US 08/24/24 Transmitted DOP 12:48 Date of Service: August 24, 2024 Billing Provider: ABBY HUMPHREYS MD Common Visit Codes: [id number] INP/OBS CARE(HIGH) Secondary Visit Codes: [id number] CARE PLAN 30 MINUTES ABBY HUMPHREYS MD August 24, 2024 12:52
[2024-08-24] MEDS: SODIUM CHLORIDE 0.9% 1,000 ML IV SCH (13:30)
--- NOTE | 2024-08-24 13:43 | DVH ---
Carotid Duplex Clinical History: Syncope Comparison: None Technique: Duplex Doppler evaluation of the extracranial carotid and vertebral arteries including color Doppler and spectral/pulsed waveform analysis was performed. Findings: RIGHT SIDE: The peak systolic velocities are 64 cm/s in the CCA, 84 cm/s in the ICA. The ICA/CCA ratio is 1.3. The external carotid artery is patent with peak systolic velocity of 72 cm/s proximally. There is appropriate antegrade flow in the right vertebral artery. LEFT SIDE: The peak systolic velocities are 67 cm/s in the CCA, 82 cm/s in the ICA. The ICA/CCA ratio is 1.2. The external carotid artery is patent with peak systolic velocity of 95 cm/s proximally. There is appropriate antegrade flow in the left vertebral artery. IMPRESSION: No hemodynamically significant stenosis noted in the right carotid system. No hemodynamically significant stenosis noted in the left carotid system. Reference: Radiology 2003; 229:340-346 Normal ICA PSV is <125 cm/sec and no plaque or intimal thickening is visible sonographically addition al criteria include ICA/CCA PSV ratio <2.0 and ICA EDV <40 cm/sec <50% ICA stenosis ICA PSV is <125 cm/sec and plaque or intimal thickening is visible sonographically additional criteria include ICA/CCA PSV ratio <2.0 and ICA EDV <40 cm/sec 50-69% ICA stenosis ICA PSV is 125-230 cm/sec and plaque is visible sonographically additional criter ia include ICA/CCA PSV ratio of 2.0-4.0 and ICA EDV of 40-100 cm/sec 70% ICA stenosis but less than near occlusion ICA PSV is >230 cm/sec and visible plaque and luminal narrowing are seen at barajas-scale and color Doppler ultrasound (the higher the Doppler parameters lie above the threshold of 230 cm/sec, the greater the likelihood of severe disease) additional criteria include ICA/CCA PSV ratio >4 and ICA EDV >100 cm/sec
[2024-08-25 01:00] VITALS: BP 140/95; PULSE 64; RESP 18; TEMP 98; O2SAT 95
[2024-08-25 05:00] VITALS: BP 144/77; PULSE 62; RESP 19; TEMP 97.9; O2SAT 95
[2024-08-25 08:00] VITALS: PULSE 62; PULSE 68; RESP 16; O2SAT 98
[2024-08-25 09:00] VITALS: BP 142/84; PULSE 78; RESP 16; TEMP 98; O2SAT 98
--- NOTE | 2024-08-25 10:02 | DVHPN2 ---
Reviewed: Care Plan, H&P, Labs, Medications, Previous Orders, Radiology Changes from previous H/P or p: No Changes Eyes: No Pain, No Vision change, No Conjunctivae inflammation, No Eyelid inflammation, No Other, No Redness ENT: No Ear pain, No Ear discharge, No Nose pain, No Nose discharge, No Nose congestion, No Mouth pain, No Mouth swelling, No Throat pain, No Throat swelling, No Other Cardiovascular: No Chest Pain, No Palpitations, No Orthopnea, No Paroxysmal Noc. Dyspnea, No Edema, No Lt Headedness; Other (Syncope) Respiratory: No Cough, No Dry, No Shortness of breath, No SOB with excertion, No Wheezing, No Hemoptysis, No Pleuritic Pain, No Sputum, No Other Gastrointestinal: No Nausea, No Vomiting, No Abdominal Pain, No Diarrhea, No Constipation, No Melena, No Hematochezia, No Other Genitourinary: No Dysuria, No Frequency, No Incontinence, No Hematuria, No Retention, No Other Musculoskeletal: No other, No neck pain, No shoulder pain, No arm pain, No back pain, No hand pain, No leg pain, No foot pain Skin: No Rash, No Lesions, No Jaundice, No Bruising, No Other Objective Vitals Vital Signs Date Time Temp Pulse Resp B/P (MAP) Pulse Ox O2 Delivery O2 Flow Rate FiO2 08/25/24 09:26 78 142/84 08/25/24 09:00 98.0 16 98 98.0 08/25/24 08:00 Room Air* 0 21 Intake/Output Intake and Output 08/25/24 07:00 Intake Total 2200 ml Balance 2200 ml Intake Oral 1400 ml IV Total 800 ml # Voids 4 Medications Current Medications Medications Dose Ordered Sig/Edis Route Start Time Stop Time Status Last Admin Dose Admin Labetalol HCl 10 mg Q2HPRN PRN IV 08/23/24 17:00 Ceftriaxone Sodium 50 ml @ 100 mls/hr DAILY@09 IV 08/24/24 09:00 08/25/24 09:26 100 MLS/HR Metoprolol Tartrate 25 mg BID PO 08/23/24 22:00 08/25/24 09:26 25 MG Aspirin 81 mg DAILY PO 08/24/24 10:00 08/25/24 09:27 81 MG Sodium Chloride 10 ml Q8HR IV 08/23/24 22:00 6/1/25 06:20 10 ML Acetaminophen/ Hydrocodone Bitart 1 tab Q4HP PRN PO 08/23/24 19:30 Ondansetron HCl 4 mg Q4HP PRN IV 08/23/24 19:30 Docusate Sodium 100 mg BIDPRN PRN PO 08/23/24 19:30 Acetaminophen 650 mg Q6HP PRN PO 08/23/24 19:30 Nitroglycerin 0.4 mg Q5MINP PRN SL 08/23/24 22:15 Morphine Sulfate 2 mg Q30M PRN IV 08/23/24 22:15 Sodium Chloride 1,000 ml @ 150 mls/hr Q6H40M IV 08/24/24 13:30 08/25/24 06:20 150 MLS/HR Laboratory Results Laboratory Tests 08/24/24 06:10 Urinalysis Test 08/23/24 19:55 Urine Color Colorless (Yellow) Urine Clarity Clear (Clear) Urine pH 6.5 (5.0-9.0) Urine Specific [place] 1.005 (1.001-1.035) Urine Protein Negative (Negative) Urine Ketones 1+ (Negative) H Urine Blood Negative /uL (Negative) Urine Nitrite Negative (Negative) Urine Bilirubin Negative (Negative) Urine Urobilinogen Normal mg/dL (Negative) Urine Leukocyte Esterase Negative /uL (Negative) Urine RBC <1 /hpf (0 - 4) Urine Microscopic WBC 2 /HPF (0-5) Urine Squamous Epithelial Cells None seen /hpf (<5) Urine Bacteria Few /hpf (None Seen) H Urine Glucose Normal mg/dL (Normal) Microbiology Microbiology Date/Time Source Procedure Growth Status 08/23/24 20:52 Blood Blood Culture - Preliminary NO GROWTH AFTER 24 HOURS OF INCUBATION. Resulted Labs and/or images reviewed: Labs reviewed by me, Image(s) reviewed by me Assessment/Plan Assessment/Plan Syncope unknown etiology: Echocardiogram result pending, carotid ultrasound negative, CT head negative chest x-ray negative cardiology consult for Dr. Ahn to rule out cardiac etiology for syncope SVT new onset, cardiology consult appreciated, advised outpatient event monitor Maxillary sinusitis: Rocephin Autonomic dysfunction Dehydration Tachycardia Generalized weakness Hypotension Hypertension on metoprolol Time spent 50 minutes Advanced care planning time 20 minutes Patient is full code Plan discussed with: Patient My Orders Orders - ABBY HUMPHREYS MD Procedure Category Date Status Time Carotid Duplx W Color US 08/24/24 Resulted DOP 12:48 Sodium Chloride 0.9% PHA 08/24/24 In Process 13:30 Date of Service: Aug 25, 2024 Billing Provider: ABBY HUMPHREYS MD Common Visit Codes: [id number] INP/OBS CARE(HIGH) ABBY HUMPHREYS MD Aug 25, 2024 10:02
--- NOTE | 2024-08-25 10:33 | DVHPN2 ---
Consult Progress Note Subjective Other Systems: Patient in normal sinus rhythm on environmental monitoring technician Denies any cardiac symptoms at time of assessment Objective vital signs Vital Sign Date Time Temp Pulse Resp B/P (MAP) Pulse Ox O2 Delivery O2 Flow Rate FiO2 08/25/24 09:26 78 142/84 08/25/24 09:00 98.0 16 98 98.0 08/25/24 08:00 Room Air* 0 21 Total Intake and Output 08/24/24 08/24/24 08/25/24 15:00 23:00 07:00 Intake Total 50 ml 2150 ml 0 ml Balance 50 ml 2150 ml 0 ml medications Current Medications Medications Dose Ordered Sig/Edis Route Start Time Stop Time Status Last Admin Dose Admin Labetalol HCl 10 mg Q2HPRN PRN IV 08/23/24 17:00 Ceftriaxone Sodium 50 ml @ 100 mls/hr DAILY@09 IV 08/24/24 09:00 08/25/24 09:26 100 MLS/HR Metoprolol Tartrate 25 mg BID PO 08/23/24 22:00 08/25/24 09:26 25 MG Aspirin 81 mg DAILY PO 08/24/24 10:00 08/25/24 09:27 81 MG Sodium Chloride 10 ml Q8HR IV 08/23/24 22:00 08/25/24 06:20 10 ML Acetaminophen/ Hydrocodone Bitart 1 tab Q4HP PRN PO 08/23/24 19:30 Ondansetron HCl 4 mg Q4HP PRN IV 08/23/24 19:30 Docusate Sodium 100 mg BIDPRN PRN PO 08/23/24 19:30 Acetaminophen 650 mg Q6HP PRN PO 08/23/24 19:30 Nitroglycerin 0.4 mg Q5MINP PRN SL 08/23/24 22:15 Morphine Sulfate 2 mg Q30M PRN IV 08/23/24 22:15 Sodium Chloride 1,000 ml @ 150 mls/hr Q6H40M IV 08/24/24 13:30 08/25/24 06:20 150 MLS/HR Examination: GENERAL:Normal, LUNGS:Normal, CVS:Normal, NEURO:Normal laboratory and microbiology Laboratory Tests 08/24/24 06:10 Test 08/24/24 06:10 Range/Units Serum Glucose 93 74-106 mg/dL Problem List/Assessment/Plan Problem List/Assessment/Plan Narrow complex tachycardia, likely SVT, new onset, now normal sinus rhythm Syncope, rule out cardiac etiology Positive orthostasis Moderately severe right maxillary sinusitis Plan/Recommendation (Dr. Ahn): * Transthoracic echocardiogram reveals EF 60% * Bilateral carotid ultrasound: Negative for stenosis * Orthostatic vital signs: Positive * Initiate ELANA hose stockings * Continue with beta-js * Stopped Amiodarone therapy * Close Cardiac surveillance * Consider outpatient event monitor Case discussed with . All twelve lead electrocardiograms reviewed with MD. No evidence of atrial fibrillation. Rhythms likely in keeping with supraventricular tachycardia although atrial flutter can not be completely ruled out. We will recommend to keep the patient on telemetry monitoring with close cardiac surveillance. The patient may benefit from an outpatient event monitor. Patient found with positive orthostatic vitals. Initiate Elana hose stockings. There is no further inpatient cardiac workup indicated at this time. Rest of care per primary care team. Thank you for allowing us to care for this patient. Please call with any questions or concerns. This medical document was created using an electronic medical record system with voice recognition software and computerized dictation system. Although this document has been carefully reviewed, there might still be some phonetic and typographical errors. Occasional wrong-word or ``sound-alike substitutions may have occurred due to the inherent limitations of voice recognition software. These areas are purely typographical due to imperfections of the software programs and do not reflect any compromise in the patient's medical care. Please read the chart carefully and recognize, using context, where these substitutions have occurred. Plan discussed with: Patient Date of Service: Aug 25, 2024 Billing Provider: JU TINAJERO Common Visit Codes: [id number] INP/OBS CARE(HIGH) JU TINAJERO Aug 25, 2024 10:33
--- NOTE | 2024-08-25 10:35 | DVHSR ---
APPROVED REPORT EXAM: Two-dimensional and M-mode echocardiogram with Doppler and color Doppler. Blood Pressure: 153/93 mmHg INDICATION Syncope RISK FACTORS Height: 5'7", Weight: 182 DIMENSIONS LVDd4.8 (3.8-5.7cm)LA (2D)4.1 (1.9-4.0cm)Aortic Root3.4 (2.0-3.7cm) LVDs3.4 (2.5-4.0cm)LA (MM) (1.9-4.0cm)Aortic Cusp Exc1.8 (1.5-2.0cm) EF (%) 55.0 (55-70%)Rt. Atrium (1.9-4.0cm)Asc. Aorta cm IVSd1.4 (0.7-1.1cm)RV (D) (1.8-2.4cm) PWd1.2 (0.7-1.1cm) Mitral Valve MitralMitral Stenosis E wave0.76m/sMV Mean GR.mmHg A wave1.04m/sMV Peak GR.mmHg E/A ratio0.72D MVAcm2 DECEL [id number] 1/2 Timems Aortic Valve Aortic ValveAortic Stenosis V10.84m/Manjinder Mean GR.6mmHg V21.58m/Manjinder Peak GR.10mmHg LVOT Diameter2.0 (1.8-2.4cm)Doppler AVA1.67cm2 Pulmonic Valve V20.73m/s Tricuspid Valve TR Velocity2.87m/s [id number] Conclusion lvef 60% by visual estimate mild LVH normal rv function left atrium enlarged no severe valve abnormalities noted aortic sclerosis noted
[2024-08-25 13:00] VITALS: BP_SYST 115; BP_SYST 129; BP_SYST 151; BP_DIAS 69; BP_DIAS 74; BP_DIAS 78; PULSE 72; PULSE 77; PULSE 79; RESP 18; TEMP 98.1; O2SAT 96
[2024-08-25 17:00] VITALS: BP 139/71; PULSE 69; RESP 14; TEMP 97.8; O2SAT 97
--- NOTE | 2024-08-26 08:31 | DVHDS2 ---
Discharge Summary Date of Admission August 23, 2024 at 22:11 Date of Discharge: Aug 25, 2024 Admitting Diagnosis Syncope Wounds: None Labs/Diagnostic Data: Laboratory Results Test 08/24/24 06:10 08/23/24 20:52 08/23/24 19:55 08/23/24 16:31 White Blood Count 6.1 10^3/uL (4.4-10.8) Red Blood Count 4.68 10^6/uL (4.0-5.20) Hemoglobin 13.5 g/dL (12.2-16.2) Hematocrit 40.2 % (36.0-46.0) Mean Corpuscular Volume 85.8 fL (80.0-100.0) Mean Corpuscular Hemoglobin 28.9 pg (28.0-32.0) Mean Corpuscular Hemoglobin Concent 33.6 g/dL (32.0-36.0) Red Cell Distribution Width 14.2 % (11.8-14.3) Platelet Count 181 10^3/uL (140-450) Mean Platelet Volume 8.3 fL (6.9-10.8) Neutrophils (%) (Auto) 62.7 % (37.0-80.0) Lymphocytes (%) (Auto) 26.7 % (10.0-50.0) Monocytes (%) (Auto) 9.7 % (0.0-12.0) Eosinophils (%) (Auto) 0.6 % (0.0-7.0) Basophils (%) (Auto) 0.3 % (0.0-2.0) Neutrophils # (Auto) 3.8 10 ^3/uL (1.6-8.6) Lymphocytes # (Auto) 1.6 10 ^3/uL (0.4-5.4) Monocytes # (Auto) 0.6 10 ^3/uL (0-1.3) Eosinophils # (Auto) 0 10 ^3/uL (0-0.8) Basophils # (Auto) 0 10 ^3/uL (0-0.2) Nucleated Red Blood Cells 0.1 % Sodium Level 145 mmol/L (136-145) Potassium Level 3.8 mmol/L (3.5-5.1) Chloride Level 114 mmol/L (98-107) Carbon Dioxide Level 24 mmol/L (20-31) Anion Gap 7 (5-15) Blood Urea Nitrogen 11 mg/dL (9-23) Creatinine 0.82 mg/dL (0.550-1.02) Glomerular Filtration Rate Calc 77 mL/min (>90) BUN/Creatinine Ratio 13.4 (10.0-20.0) Serum Glucose 93 mg/dL (74-106) Calcium Level 10.3 mg/dL (8.7-10.4) Total Bilirubin 0.9 mg/dL (0.2-1.0) Aspartate Amino Transferase (AST) 10 U/L (13-40) Alanine Aminotransferase (ALT) 13 U/L (7-40) Alkaline Phosphatase 78 U/L (46-116) Total Protein 5.9 g/dL (5.7-8.2) Albumin 3.6 g/dL (3.2-4.8) Lactic Acid Level 1.5 mmol/L (0.4-2.0) Urine Color Colorless (Yellow) Urine Clarity Clear (Clear) Urine pH 6.5 (5.0-9.0) Urine Specific [place] 1.005 (1.001-1.035) Urine Protein Negative (Negative) Urine Ketones 1+ (Negative) Urine Blood Negative /uL (Negative) Urine Nitrite Negative (Negative) Urine Bilirubin Negative (Negative) Urine Urobilinogen Normal mg/dL (Negative) Urine Leukocyte Esterase Negative /uL (Negative) Urine RBC <1 /hpf (0 - 4) Urine Microscopic WBC 2 /HPF (0-5) Urine Squamous Epithelial Cells None seen /hpf (<5) Urine Bacteria Few /hpf (None Seen) Urine Glucose Normal mg/dL (Normal) Troponin I High Sensitivity 3 ng/L (</=34) Other Laboratory Tests 08/24/24 06:10 Brief Hx & Hospital Course: 68-year-old female admitted for syncopal episode. Patient had narrow complex tachycardia likely SVT new onset. Patient was positive for orthostatics IV fluids were given moderate maxillary sinusitis treated with IV antibiotics. Cardiology advised outpatient event monitor. Echo 60 percent ejection fraction. Carotid ultrasound negative CT head negative While awaiting further stabilization patient left AMA. Consequences complications explained to the patient and she verbalized understanding Consults/Reason for consult Cardiology Dr. Ahn Operations or Procedures Echocardiogram Condition at Discharge: Fair Final Diagnosis/Problems List Narrow complex tachycardia, likely SVT, new onset, now normal sinus rhythm Syncope, rule out cardiac etiology Positive orthostasis Moderately severe right maxillary sinusitis Discharge Disposition: AMA Discharge Instruct/Medications Diet comment: Not applicable Patient left AMA Activity comment: Not applicable Patient left AMA Follow Up/Referral: Not applicable Patient left AMA Medications: Not applicable Patient left AMA Discharge Statement: "Patient was advised to return to the ER or call 911 if any headaches, dizziness, shortness of breath, chest pain, abdominal pain, bleeding, fevers, or worsening of medical condition. Patient was counseled about treatment plan, medications, possible side effects, patientverbalized understanding. All questions were answered to the best of my ability. This discharge took greater then 30 minutes in planning, reviewing documentation, counseling the patient, and discussing with other team members." ASSESSMENT ASSESSMENT Hospital Course Left AMA Assessment Left AMA Date of Service: Aug 26, 2024 Billing Provider: ABBY HUMPHREYS MD Common Visit Codes: 25925-KFJ/OBS DISCH DAY >30min ABBY HUMPHREYS MD Aug 26, 2024 08:31
--- NOTE | 2024-08-29 07:01 | ECG ---
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
--- NOTE | 2024-08-29 07:01 | ECG ---
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
--- NOTE | 2024-08-29 07:01 | ECG ---
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
== END 2024-08-25 18:06 | disposition left against medical advice (07) | DRG 310 ==
LOC: EDBD 14:20 → ER 14:23 → OVERFLOW 22:11 → TELE-EAST 23:39
PROVIDERS: ADMIT Nurse Practitioner Family; ATTEND Nurse Practitioner Family
DX: I47.10 Supraventricular tachycardia, unspecified (principal); I10 Essential (primary) hypertension; I95.1 Orthostatic hypotension; E86.0 Dehydration; J32.0 Chronic maxillary sinusitis; Z53.29 Procedure and treatment not carried out because of patient's decision for other reasons; Z79.899 Other long term (current) drug therapy; W01.0XXA Fall on same level from slipping, tripping and stumbling without subsequent striking against object, initial encounter; Y93.01 Activity, walking, marching and hiking; Y92.89 Other specified places as the place of occurrence of the external cause; Y99.8 Other external cause status
CPT/HCPCS: 36415; 70450; 80048; 80053; 81001; 83605; 84484; 85025; 87040; 93005; 93306; 93886; 96374; 99291; G0378